=== PATIENT | female | born 1990 | race American Indian/Alaskan Native ===

== ENCOUNTER 2017-11-27 15:05 | Emergency (ER) | payer OTHER ==
[2017-11-27 15:22] VITALS: PULSE 87; TEMP 98.6
[2017-11-27 16:17] LABS: SQUAMOUS EPITHIAL 8 /hpf (0-5); URINE BACTERIA RARE (<OCC); URINE BILIRUBIN NEGATIVE (NEGATIVE); URINE BLOOD NEGATIVE (NEGATIVE); URINE CLARITY Hazy (Clear); URINE GLUCOSE (UA) NORMAL (Normal); URINE LEUKOCYTE ESTERASE 3+ Leu/uL (Negative); URINE PROTEIN NEGATIVE (NEGATIVE); URINE UROBILINOGEN NORMAL mg/dL (0.2-1.0)
[2017-11-27 16:22] LABS: URINE COLOR YELLOW (YELLOW)
--- NOTE | 2017-11-27 16:54 | C.PDOC ---
History Of Present Illness 27-year-old female, presents to the emergency department with complaints of back pain x2 weeks associated with nausea. Patient seen previously and treated for kidney infection. Initially, pain improved but has worsened over the past few days. Patient denies abdominal pain, vomiting, diarrhea, vaginal bleeding/ discharge, fevers, dysuria/hematuria. Time Seen by Provider: 11/27/17 15:33 Chief Complaint (Nursing): Back Pain History Per: Patient History/Exam Limitations: no limitations Onset/Duration Of Symptoms: Days Past Medical History Reviewed: Historical Data, Nursing Documentation, Vital Signs Vital Signs: Last Vital Signs Temp 98.6 F 11/27/17 17:18 Pulse 87 11/27/17 17:18 Resp 18 11/27/17 17:18 BP 112/73 11/27/17 17:18 Pulse Ox 99 11/27/17 17:18 - Medical History PMH: Chronic Kidney Disease Family History: States: No Known Family Hx - Social History Hx Alcohol Use: No Hx Substance Use: No - Immunization History Hx Tetanus Toxoid Vaccination: No Hx Influenza Vaccination: No Hx Pneumococcal Vaccination: No Review Of Systems Constitutional: Negative for: Fever, Chills Gastrointestinal: Positive for: Nausea. Negative for: Vomiting Genitourinary: Negative for: Vaginal Discharge, Vaginal Bleeding Musculoskeletal: Positive for: Back Pain Neurological: Negative for: Weakness, Numbness, Headache, Dizziness Physical Exam - Physical Exam Appears: Non-toxic, No Acute Distress Skin: Normal Color, Warm, Dry, No Rash Head: Normacephalic Eye(s): bilateral: PERRL Nose: Normal Oral Mucosa: Moist Lips: Normal Appearing Neck: Normal ROM Cardiovascular: Rhythm Regular, No Murmur Respiratory: Normal Breath Sounds, No Accessory Muscle Use Gastrointestinal/Abdominal: Soft, No Tenderness Back: Paraspinal Tenderness (lumbar.) Extremity: Normal ROM, No Deformity, No Swelling Neurological/Psych: Oriented x3, Normal Speech ED Course And Treatment O2 Sat by Pulse Oximetry: 98 (RA) Pulse Ox Interpretation: Normal Medical Decision Making Medical Decision Making: Patient urine reveals UTI, will treat with antibiotics and instructed to f/u with doctor in two days Please note patient abic was changed bactrim at request of patient. Disposition Counseled Patient/Family Regarding: Studies Performed, Diagnosis, Need For Followup, Rx Given - Disposition Referrals: [facility] [Outside] Disposition: HOME/ ROUTINE Disposition Time: 17:00 Condition: STABLE Additional Instructions: follow up with your doctor in 2 days call to make an appointment take medications as prescribed return to ER if symptoms worsens or progress Prescriptions: Naproxen [Naprosyn] 500 mg PO BID PRN #16 tab PRN Reason: Pain, Moderate (4-7) Nitrofurantoin Macrocrystals [Macrobid] 100 mg PO BID #20 cap Instructions: Urinary Tract Infections in Adults Forms: [facility] (Kinyarwanda), General Discharge Instructions - Clinical Impression Clinical Impression: UTI (urinary tract infection), Low back pain - Scribe Statement The provider has reviewed the documentation as recorded by the Scribe (Jed Hidalgo) All medical record entries made by the Scribe were at my direction and personally dictated by me. I have reviewed the chart and agree that the record accurately reflects my personal performance of the history, physical exam, medical decision making, and the department course for this patient. I have also personally directed, reviewed, and agree with the discharge instructions and disposition.
[2017-11-27 17:19] VITALS: BP 112/73; RESP 18
[2017-11-29 20:09] VITALS: O2SAT 98
== END 2017-11-27 17:20 | disposition home or self-care (01) ==
LOC: C.ER 15:05
DX: N39.0 Urinary tract infection, site not specified (principal); M54.5 Low back pain